=== PATIENT | male | born 1970 ===

== ENCOUNTER 2018-10-11 11:44 | Emergency (ER) | payer OTHER ==
[2018-10-11 12:07] VITALS: BP 137/84; PULSE 64; RESP 16; TEMP 98.9; O2SAT 98
[2018-10-11] MEDS ORDERED: Naproxen 550 mg Tab PO STA (12:31)
[2018-10-11] MEDS ORDERED: Naproxen 550 mg Tab PO ONE (12:38)
--- NOTE | 2018-10-11 13:30 | C.PDOC ---
History Of Present Illness 48-year-old male presents to the ED for evaluation of right-sided lower back pain that has been radiating to his buttock and posterior thigh for the past five days. He has tried taking ibuprofen without significant relief. Patient denies recent falls/injuries, fever, chills, dysuria, hematuria, or abdominal pain at this time. Time Seen by Provider: 10/11/18 12:05 Chief Complaint (Nursing): Back Pain History Per: Patient History/Exam Limitations: no limitations Onset/Duration Of Symptoms: Days (5) Current Symptoms Are (Timing): Still Present Quality Of Discomfort: "Pain" Previous Symptoms: Back Pain Additional History Per: Patient Past Medical History Reviewed: Historical Data, Nursing Documentation, Vital Signs Vital Signs: Last Vital Signs Temp 98.9 F 10/11/18 12:05 Pulse 64 10/11/18 12:05 Resp 16 10/11/18 12:05 BP 137/84 10/11/18 12:05 Pulse Ox 98 10/11/18 12:05 - Medical History PMH: Hypothyroidism Surgical History: Cholecystectomy Family History: States: Unknown Family Hx - Social History Hx Alcohol Use: Yes Hx Substance Use: No - Immunization History Hx Tetanus Toxoid Vaccination: No Hx Influenza Vaccination: No Hx Pneumococcal Vaccination: No Review Of Systems Constitutional: Negative for: Fever, Chills Gastrointestinal: Negative for: Abdominal Pain Genitourinary: Negative for: Dysuria, Hematuria Musculoskeletal: Positive for: Back Pain (right-sided, lower ), Other (buttock and posterior thigh pain ) Physical Exam - Physical Exam Appears: Non-toxic, Other (in mild-moderate pain ) Skin: Normal Color, Warm, Dry, No Rash Head: Atraumatic, Normacephalic Eye(s): bilateral: Normal Inspection Oral Mucosa: Moist Neck: Supple Chest: Symmetrical, No Deformity, No Tenderness Cardiovascular: Rhythm Regular, No Murmur Respiratory: Normal Breath Sounds, No Rales, No Rhonchi, No Wheezing Back: No CVA Tenderness, Paraspinal Tenderness (right-sided, lumbar ) Extremity: Normal ROM, No Tenderness, Capillary Refill (less than 2 seconds ) Neurological/Psych: Oriented x3, Normal Speech, Normal Cognition, Normal Sensation Gait: Steady ED Course And Treatment O2 Sat by Pulse Oximetry: 98 (on RA ) Pulse Ox Interpretation: Normal Progress Note: Flexeril PO, naproxen PO, and Lidoderm TD given. On reassessment, patient is resting comfortably, showing no signs of distress, and reports improvement in his symptoms. Patient is ambulatory in the ED with a steady gait and is stable for discharge. He will be given a prescription for Flexeril for muscle spasms and Naproxen for pain. He is advised to follow up with his PMD within 1 to 2 days for further evaluation. Advised to return to the ED if symptoms persist or worsen. Disposition Counseled Patient/Family Regarding: Diagnosis, Need For Followup, Rx Given - Disposition Referrals: [facility] [Outside] Disposition: HOME/ ROUTINE Disposition Time: 13:30 Condition: STABLE Additional Instructions: FOLLOW UP WITH YOUR DOCTOR/CLINIC IN 1-2 DAYS USE MEDICATIONS NEEDED RETURN TO ER IF SYMPTOMS WORSEN Prescriptions: Cyclobenzaprine [Flexeril] 10 mg PO BID PRN #15 tab PRN Reason: Muscle Spasm Naproxen 375 mg PO BID PRN #20 tablet PRN Reason: pain Instructions: Sciatica (DC) Forms: [employer] (Swedish) Print Language: MICRONESIAN - Clinical Impression Clinical Impression: Right sided sciatica - Scribe Statement The provider has reviewed the documentation as recorded by the Scribe (Kenzie Perez) Provider Attestation: All medical record entries made by the Scribe were at my direction and personally dictated by me. I have reviewed the chart and agree that the record accurately reflects my personal performance of the history, physical exam, medical decision making, and the department course for this patient. I have also personally directed, reviewed, and agree with the discharge instructions and disposition.
[2018-10-11] MEDS ORDERED: Lidocaine 5% Patch TD STA (13:48)
[2018-10-11] MEDS ORDERED: Lidocaine 5% Patch TD ONE (13:56)
== END 2018-10-11 13:56 | disposition home or self-care (01) ==
LOC: C.ER 11:44
DX: M54.31 Sciatica, right side (principal)